=== PATIENT | male | born 1965 | race Caucasian/White ===

== ENCOUNTER → 2019-08-13 | Outpatient (CLI) | payer OTHER ==
[~2019-08-13] MED LIST: FAMO20 PO; PROM25 PO
== END | disposition home or self-care (01) ==
LOC: LAB SHORT 12:34 → LAB EV 12:34
DX: J02.9 Acute pharyngitis, unspecified (principal)
CPT/HCPCS: 87081

== ENCOUNTER 2023-09-15 03:23 | Day surgery (SDC) | payer OTHER | END 2023-09-15 22:56 | disposition home or self-care (01) | LOC: WOUND 03:23 | DX: I87.2 Venous insufficiency (chronic) (peripheral) (principal); I42.0 Dilated cardiomyopathy; I10 Essential (primary) hypertension; I25.10 Atherosclerotic heart disease of native coronary artery without angina pectoris; Z87.891 Personal history of nicotine dependence | CPT/HCPCS: G0463 ==

== ENCOUNTER 2023-11-19 10:52 | Day surgery (SDC) | payer OTHER ==
[2023-11-19] VITALS (7 sets, daily range): BP systolic 123–179; BP diastolic 69–105
[~2023-11-19] VITALS: Ht 180.3 cm; Wt 116.1 kg
[~2023-11-19 10:52] MED LIST changes: +ALBU90OI INH; +ANORO ELLIPTA1 EACH INH; +ATOR10 PO; +Aspir 8181 MG PO; +FARXIGA10 MG PO; +FURO40 PO; +LOSA50 PO; +METO50ER PO
[2023-11-19] MEDS ORDERED: FentaNYL Citrate 50 MCG/ML 2 ML Injection ONE (11:23)
[2023-11-19] MEDS ORDERED: Midazolam HCl 1MG / ML 2ML Vial ONE (11:23)
[2023-11-19] MEDS ORDERED: NS 1,000 ML IV ONE (11:24)
[2023-11-19] MEDS ORDERED: Verapamil HCL 2.5 MG/ML 2ML Injection ONE (12:02)
[2023-11-19] MEDS ORDERED: Heparin Sodium 1000 Units/ML 10ML MDV ONE (12:06)
[2023-11-19] MEDS ORDERED: Isosorbide Mono30 MG PO (13:12)
== END 2023-11-19 13:10 | disposition home or self-care (01) ==
LOC: MHTC 10:52
DX: I42.0 Dilated cardiomyopathy (principal); I10 Essential (primary) hypertension; E66.01 Morbid (severe) obesity due to excess calories; I25.10 Atherosclerotic heart disease of native coronary artery without angina pectoris
CPT/HCPCS: 76937; 93454; 93458; 99152; C1769; C1894; J1644; J2250; J3010; J7030; Q9967